=== PATIENT | female | born 1965 | race Two or more races ===

== ENCOUNTER 2021-05-15 11:05 | Emergency (ER) | payer OTHER ==
[~2021-05-15] VITALS: Ht 172.7 cm; Wt 70.5 kg
[2021-05-15 11:34] VITALS: BP 155/81
== END 2021-05-15 14:30 | disposition left against medical advice (07) ==
LOC: ER 11:06
DX: R03.0 Elevated blood-pressure reading, without diagnosis of hypertension (principal); Z53.21 Procedure and treatment not carried out due to patient leaving prior to being seen by health care provider
CPT/HCPCS: 93005